=== PATIENT | female | born 1930 | race Caucasian/White ===

== ENCOUNTER 2016-05-25 07:47 | Inpatient (IN) | payer MEDICARE, OTHER ==
[2016-05-25 08:54] LABS: BASOPHILS % 0.2 (0.0-1.5); EOSINOPHILS % 0.1 % (0.0-6.8); MEAN CORPUSCULAR HEMOGLOBIN 31.5 pg (28.0-34.0); MONOCYTES # 0.4 # k/uL (0.0-0.9); MONOCYTES % 4.1 % (0.0-11.0); NEUTROPHILS # 9.3 # k/uL (1.4-7.7)
[2016-05-25] MEDS ORDERED: VANCOMYCIN HCL 1 GM in 0.9 % SODIUM CHLORIDE 500 ML IV ONE (09:00)
[2016-05-25 09:04] LABS: eGFR (African) > 60; eGFR (Non-African) > 60
[2016-05-25] MEDS ORDERED: methylPREDNISolone SOD SUCC 125 MG/2 ML VIAL ONE (09:17)
[2016-05-25] MEDS ORDERED: 0.9 % SODIUM CHLORIDE 50 ML IV ONE ×2 (09:17→13:47)
[2016-05-25] MEDS ORDERED: MEROPENEM 1,000 MG IV.SOLN. IV ONE (09:17)
--- NOTE | 2016-05-25 09:38 | ED Physician Documentation ---
Dyspnea - HISTORIAN Historian: patient - HPI Stated Complaint: dyspnea Chief Complaint: Dyspnea Additional Information: 85 yo F here from half[place]way for 3 days worsening SOB. She reportedly was diagnosed with influenza 1 week ago. She was doing fairly well but worsening over last 3 days. She does have Parkinsons with associated dementia so ROS difficult and mostly obtained from daughter, who does not live with her. She is unsure if she has had fevers the last 3 days. Daughter believes her to be at her normal mental baseline, says she is somewhat quiet and doesnt talk frequently. She has had a productive cough. Other history includes CHF, COPD. I spoke with daughter, patient does have DNR/DNI on file. Patient would be OK with noninvasive positive pressure ventilation if necessary. All other systems reviewed and negative except per HPI noting above limitations. Duration: continues in ED Initiating Event: upper respiratory illness Severity: moderate - ROS CONST: recent illness (influenza) EYES/ENT: denies: sore throat, nasal drainage, nasal congestion GI/: denies: abdominal pain, problems urinating MS/SKIN/LYMPH: none - PAST HX Lung Disease: COPD, pneumonia Cardiac Disease: CHF, other (HTN) Surgeries/Procedures: other (unknown) Allergies/Adverse Reactions: Allergies Allergy/AdvReac Type Severity Reaction Status Date / Time Penicillins Allergy Intermediate Rash Verified 06/14/13 08:41 Sulfa (Sulfonamide Allergy Intermediate Rash Verified 06/14/13 08:41 Antibiotics) [Sulfa(Sulfonamide Antibiotics)] Home Medications: Ambulatory Orders Medication Instructions Recorded Acetaminophen [Tylenol] 650 mg PO Q6 PRN 06/14/13 Aspirin [Michoacano] 81 mg PO QD 06/14/13 Ipratropium/Albuterol Sulfate 3 ml NEB TID 06/14/13 [Duoneb] Latanoprost [Xalatan] 1 drop EACHEYE HS 06/14/13 Magnesium Hydroxide [Milk of 30 ml PO DAILY PRN 06/14/13 Magnesia] Multivitamin [Tab-A-Lupe] 1 each PO QD 06/14/13 Carbidopa/Levodopa 25/100 [Sinemet] 1 each PO TID tablet 07/01/15 Valproic Acid (As Sodium Salt) 250 mg PO QID bottle 07/01/15 [Depakene] cefTRIAXone SODIUM [Rocephin] 1 gm IV QD vial 07/01/15 - SOCIAL HX Smoking History: quit greater than 1 year Alcohol Use: none Drug Use: none - FAMILY HX Family History: none - VITAL SIGNS Vital Signs: Vital Signs Temp Pulse Resp BP Pulse Ox 99.2 F 109 H 30 H 150/69 89 L 05/25/16 07:50 05/25/16 07:50 05/25/16 07:50 05/25/16 07:50 05/25/16 07:50 - REVIEWED ASSESSMENTS Nursing Assessment Reviewed: Yes Vitals Reviewed: Yes ED Results Lab/Radiology - Lab Results Lab Results: Lab Results 05/25/16 05/25/16 05/25/16 08:45 08:45 08:45 WBC RBC Hgb Hct MCV MCH MCHC RDW Plt Count Neut % (Auto) Lymph % (Auto) [place] % (Auto) Eos % (Auto) Baso % (Auto) Neut # Lymph # [place] # Eos # Baso # Reactive Lymphs % Reactive Lymphs # Sodium Potassium Chloride Carbon Dioxide BUN Creatinine Estimated Creat Clear Est GFR ( Amer) Est GFR (Non-Af Amer) Glucose Calcium Total Bilirubin AST ALT Alkaline Phosphatase Creatine Kinase CK-MB (CK-2) 0.6 ng/mL ng/mL (0.3-5.0) Troponin I < 0.03 ng/mL L ng/mL (0.03-0.06) NT-Pro-B Natriuret Pep 1930.0 pg/mL H pg/mL (15.0-450.0) Total Protein Albumin 05/25/16 05/25/16 08:45 08:45 WBC 11.00 K/ul K/ul (4.00-12.00) RBC 3.94 M/ul M/ul (3.90-5.20) Hgb 12.4 g/dL g/dL (12.0-16.0) Hct 38.5 % % (34.5-46.5) MCV 97.7 fl fl (80.0-100.0) MCH 31.5 pg pg (28.0-34.0) MCHC 32.2 g/dL g/dL (30.0-36.0) RDW 13.7 % % (11.3-14.3) Plt Count 189 K/mm3 K/mm3 (130-400) Neut % (Auto) 84.9 % H % (39.0-79.0) Lymph % (Auto) 9.5 % L % (16.0-50.0) [place] % (Auto) 4.1 % % (0.0-11.0) Eos % (Auto) 0.1 % % (0.0-6.8) Baso % (Auto) 0.2 (0.0-1.5) Neut # 9.3 # k/uL H # k/uL (1.4-7.7) Lymph # 1.0 # k/uL # k/uL (0.6-4.0) [place] # 0.4 # k/uL # k/uL (0.0-0.9) Eos # 0.0 # k/uL # k/uL (0.0-0.6) Baso # 0.0 # k/uL # k/uL (0.0-0.5) Reactive Lymphs % 1.2 % % (0.0-5.0) Reactive Lymphs # 0.1 # k/uL # k/uL (0.0-0.8) Sodium 142 mmol/L mmol/L (136-145) Potassium 4.6 mmol/L mmol/L (3.5-5.0) Chloride 108 mmol/L mmol/L (98-110) Carbon Dioxide 34 mmol/L H mmol/L (20-32) BUN 18 mg/dL mg/dL (10-26) Creatinine 0.9 mg/dL mg/dL (0.4-1.5) Estimated Creat Clear 71 Est GFR ( Amer) > 60 (60 - ) Est GFR (Non-Af Amer) > 60 (60 - ) Glucose 134 mg/dL H mg/dL (70-99) Calcium 9.4 mg/dL mg/dL (8.5-10.5) Total Bilirubin 0.4 mg/dL mg/dL (0.2-1.2) AST 18 U/L U/L (0-41) ALT 17 U/L U/L (0-45) Alkaline Phosphatase 72 U/L U/L (46-116) Creatine Kinase 56 U/L U/L (0-225) CK-MB (CK-2) Troponin I NT-Pro-B Natriuret Pep Total Protein 8.7 g/dL H g/dL (6.0-8.5) Albumin 4.1 g/dL g/dL (3.0-5.5) - Orders Orders: ED Orders Category Date Time Status CHEST 1 VIEW [RAD] Stat Exams 05/25/16 Ordered CHEST 1 VIEW [RAD] Stat Exams 05/25/16 08:38 Stop Req BLOOD CULTURE Stat Lab 05/25/16 08:45 Received CBC/PLATELET/DIFF Stat Lab 05/25/16 08:45 Completed CMP Stat Lab 05/25/16 08:45 Completed CREATINE KINASE MB Stat Lab 05/25/16 08:45 Completed CREATINE KINASE Stat Lab 05/25/16 08:45 Completed NT-proBNP Stat Lab 05/25/16 08:45 Completed TROPONIN I (cTnI) Stat Lab 05/25/16 08:45 Completed blood gas [ARTERIAL BLOOD GAS] Stat Lab 05/25/16 Uncollected 0.9 % Sodium Chloride [Sodium Chloride] 50 ml Med 05/25/16 09:17 Discontinued IV .STK-MED Meropenem Med 05/25/16 09:17 Discontinued 1,000 mg IV .STK-MED ONE Meropenem 1,000 mg Med 05/25/16 13:00 Ordered 0.9 % Sodium Chloride [Sodium Chloride] 50 ml IV Q8 Vancomycin HCl [Vancocin] 1 gm Med 05/25/16 09:00 Active 0.9 % Sodium Chloride [Normal Saline] 500 ml IV NOW methylPREDNISolone SOD SUCC [Solu-MEDROL] Med 05/25/16 09:17 Discontinued 125 mg .ROUTE .STK-MED ONE methylPREDNISolone SOD SUCC [Solu-MEDROL] 125 mg Med 05/25/16 09:10 Discontinued 0.9 % Sodium Chloride [Sodium Chloride] 100 ml IV NOW Oxygen Stat Oxygen 05/25/16 08:45 Ordered EKG WITH COMPARISON Stat Ther 05/25/16 08:39 Ordered ABG pH 7.47, CO2 42, PO2 83 on NRB, HCO3 30.6, SAO2 97% NRB. CXR LLL PNA. EKG NSR 99bpm, normal axis, normal intervals, no ST or T wave changes. No ectopy. Dyspnea Physical Exam - EXAM General Appearance: moderate distress (respiratory) EENT: ENT inspection normal, dry mucous membranes Respiratory: respiratory distress (moderate), accessory muscle use, decreased air movement (L base), rhonchi (L base) CVS: reg. rate & rhythm, no murmur, pulses equal Abdomen: non-tender, no organomegaly, no distention Skin: color nml, no rash Extremities: other (1+ b/l LE edema, non pitting) Neuro/Psych: other (patient opens her eyes, follow commands but doesnt talk much. Nods appropriately. ) Discharge Clincal Impression: Influenza, Hypoxia Pneumonia Qualifiers: Pneumonia type: due to unspecified organism Laterality: left Lung location: lower lobe of lung Qualified Code(s): J18.1 - Lobar pneumonia, unspecified organism Dyspnea Qualifiers: Dyspnea type: unspecified Qualified Code(s): R06.00 - Dyspnea, unspecified Referrals: Theodore Hinojosa MD [Primary Care Provider] - 2 Days Home Medications: Ambulatory Orders Acetaminophen [Tylenol] 650 mg PO Q6 PRN 06/14/13 Aspirin [Michoacano] 81 mg PO QD 06/14/13 Ipratropium/Albuterol Sulfate [Duoneb] 3 ml NEB TID 06/14/13 Latanoprost [Xalatan] 1 drop EACHEYE HS 06/14/13 Magnesium Hydroxide [Milk of Magnesia] 30 ml PO DAILY PRN 06/14/13 Multivitamin [Tab-A-Lupe] 1 each PO QD 06/14/13 Carbidopa/Levodopa 25/100 [Sinemet] 1 each PO TID tablet 07/01/15 Valproic Acid (As Sodium Salt) [Depakene] 250 mg PO QID bottle 07/01/15 cefTRIAXone SODIUM [Rocephin] 1 gm IV QD vial 07/01/15 Comments: Patient initially in moderate resp distress on NC 4L with O2 in upper 80's low 90's and increased work of breathing. Placed immediately on NRB cardiac monitors and care delayed due to code blue in another room. On re-eval the patient is much more comfortable with decreased work of breathing on NRB. CXR with LLL PNA, no significant fluid overload. Started on HCAP abx, merrem and vanc. BP has remained stable, no tachycardia. No fluids given due to CHF and stable BP. Blood gas without elevated CO2. Condition: Good Disposition: ADMITTED INPATIENT Decision to Admit: [id number] Decision Time: 09:30
[2016-05-25 09:42] LABS: ABG PH 7.47 (7.35-7.45)
[2016-05-25 09:43] LABS: ABG BASE EXCESS 6.3 (-2 - +2)
[2016-05-25] MEDS ORDERED: MEROPENEM 1,000 MG in 0.9 % SODIUM CHLORIDE 50 ML IV STA (09:43)
[2016-05-25] MEDS ORDERED: MEROPENEM 1,000 MG in 0.9 % SODIUM CHLORIDE 50 ML IV SCH ×2 (10:00→13:00)
[2016-05-25] MEDS ORDERED: IPRATROPIUM/ALBUTEROL SULFATE 3 ML AMPUL.NEB NEB PRN (10:29)
[2016-05-25] MEDS ORDERED: MAGNESIUM HYDROXIDE 400 MG/5 ML 30ML UDC PO PRN (10:29)
[2016-05-25] MEDS ORDERED: ACETAMINOPHEN 325 MG TABLET PO PRN (10:29)
[2016-05-25 11:49] VITALS: BMI 51.7
[2016-05-25] MEDS ORDERED: SALINE FLUSH 10 ML DISP.SYRIN IVF ONE ×2 (12:18→13:47)
[2016-05-25] MEDS: ENOXAPARIN SODIUM 30 MG/0.3 ML DISP.SYRIN SQ SCH ×2 (12:32→20:08)
--- NOTE | 2016-05-25 12:46 | History and Physical Report ---
History of Present Illnes - History of Present Illness Reason for Visit: left lower lobe pneumonia/hypoxia History of Present Illness: This is an 85 year old female patient at [place], who presented to the ER this morning with c/o cough/fever and decreased LOC. She was found to have a left lower lobe pneumonia on x ray and a minimally elevated WBC. Her troponin is negative. She is currently on )2 at 15L by NRB and her saturations are 98%. She is oxygen dependent at the prison also. It is of note that she was influenza A positive last week and had a course of oseltamavir. Despite this, however her clinical condition continued to worsen such that I was called for an order to send her to the ER this am. 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 denies: Tetanus, Pap Smear, Mammogram, Colonoscopy, DEXA Pneumonia Vaccine: Yes Resuscitation Status: Resusciation Status Resuscitation Status Do Not Resuscitate - Unable to Obtain History Unable to Obtain: Yes Review of Systems - Review of Systems Constitutional: Fever Eyes: negative: pain ENT: negative: Ear Pain Respiratory: Cough, Shortness of Breath Cardiovascular: Orthopnea Gastrointestinal: negative: Nausea, Vomiting Genitourinary: negative: Dysuria, Frequency Musculoskeletal: negative: Neck Pain Skin: negative: Rash Neurological: Weakness, Confusion - Medications/Allergies Allergies/Adverse Reactions: Allergies Allergy/AdvReac Type Severity Reaction Status Date / Time Penicillins Allergy Intermediate Rash Verified 06/14/13 08:41 Sulfa (Sulfonamide Allergy Intermediate Rash Verified 06/14/13 08:41 Antibiotics) [Sulfa(Sulfonamide Antibiotics)] Current Inpatient Medications: Current Inpatient Medications Acetaminophen (Tylenol) 650 mg PO Q6 PRN PRN Reason: pain or elevated temp Al Hydroxide/Mg Hydroxide (Milk Of Magnesia) 2,400 mg PO DAILY PRN PRN Reason: Constipation Albuterol/Ipratropium (Duoneb) 3 ml NEB TID VENESSA Albuterol/Ipratropium (Duoneb) 3 ml NEB QID PRN PRN Reason: shortness of breath Amlodipine Besylate (Norvasc) 5 mg PO DAILY [facility] Aspirin (Aspirin) 81 mg PO DAILY [facility] Carbidopa/Levodopa (Sinemet) 1 each PO TID [facility] Enoxaparin Sodium (Lovenox) 30 mg SQ Q12H VENESSA Stop: 05/31/16 22:01 Last Admin: 05/25/16 12:32 Dose: 30 mg Latanoprost (Xalatan) 1 drop OP HS [facility] Lisinopril (Prinivil) 20 mg PO DAILY [facility] Metoprolol Tartrate (Lopressor) 25 mg PO BID [facility] Miscellaneous (Atorvastatin Calcium [Lipitor]) 10 mg PO HS [facility] Multivitamins (Tab-A-Lupe) 1 each PO QD [facility] Tiotropium Anna (Spiriva) 1 inh IH DAILY [facility] Exam - Exam Vital Signs: Vital Signs (72 hours) 05/25/16 05/25/16 10:07 10:27 Temperature 99.5 F 99.5 F Pulse Rate [ 94 H 94 H Pulse ox] Respiratory 34 H 34 H Rate Blood Pressure 128/57 128/57 [Right Arm] O2 Sat by Pulse 97 97 Oximetry General: Obese HEENT: Atraumatic, PERRLA, EOMI, Mouth Mucous membr. moist/[place] Neck: No: Stridor Lungs: Wheezes, Prolonged Expiration (and tachypnea), Decreased Air Movement Cardiovascular: Regular rate, Normal S1, Normal S2 Murmur: No: Systolic Murmur Abdomen: Normal bowel sounds (without tympany), Soft Genitourinary: No: Right Inguinal Hernia, Left Inguinal Hernia Male Genitourinary: No: Other Female Genitourinary: No: Prolapse Integumentary: Normal, [place], Warm, Dry, Other (Skin is in remarkably good condition. No yeast, no decubiti) Extremities: No edema Neurological: Generalized Weakness Psych/Mental Status: No: Mental status NL - Laboratory Results Laboratory Results: CXR shows a left lower lobe pneumonia Assessment/Plan - Assessment/Plan (1) Left lower lobe pneumonia Status: Acute Current Visit: Yes Qualifiers: Pneumonia type: due to unspecified organism Qualified Code(s): J18.1 - Lobar pneumonia, unspecified organism Assessment: Will change to IV ceftriaxone and azithromycin (2) Dyspnea Status: Acute Current Visit: Yes Qualifiers: Dyspnea type: unspecified Qualified Code(s): R06.00 - Dyspnea, unspecified Assessment: Due to COPD and pneumonia Plan: nebulizer treatments/IV steroids (3) Hypoxia Status: Acute Current Visit: Yes Assessment: Currently on 15L by NRB Plan: Attempt to wean as possible (4) COPD (chronic obstructive pulmonary disease) Status: Chronic Current Visit: No Qualifiers: COPD type: emphysema Assessment: nebulizer treatments/steroids (5) Essential hypertension Status: Chronic Current Visit: No Assessment: Currently well controlled (6) Seizure disorder Status: Chronic Current Visit: No Assessment: No active seizure activity Plan: Continue current dose of valproic acid VTE Assessment - RISK FACTOR SCORE VTE RISK FACTOR SCORES: AGE OVER 60 YEARS, ACUTE RESPIRATORY FAILURE/SEVERE COPD - RISK VTE MODERATE RISK: SCORE OF 2 (RISK PROXIMAL DVT 2-4%) PROPHYAXIS NEEDED (On lovenox)
[2016-05-25] MEDS: MULTIVITAMIN 1 EACH TABLET PO SCH (12:50)
[2016-05-25] MEDS: VALPROIC ACID (AS SODIUM SALT) 250 MG/5 ML BOTTLE PO SCH ×3 (12:50→20:07)
[2016-05-25] MEDS: ASPIRIN 81 MG CHEW TAB PO SCH (12:50)
[2016-05-25] MEDS ORDERED: IPRATROPIUM/ALBUTEROL SULFATE 3 ML AMPUL.NEB NEB SCH (13:00)
[2016-05-25] MEDS: IPRATROPIUM/ALBUTEROL SULFATE 3 ML AMPUL.NEB NEB SCH ×2 (13:07→20:03)
[2016-05-25] MEDS ORDERED: 0.9 % SODIUM CHLORIDE 250 ML IV ONE (13:46)
[2016-05-25] MEDS ORDERED: cefTRIAXone SODIUM 1 GM VIAL ONE (13:47)
[2016-05-25] MEDS ORDERED: AZITHROMYCIN 500 MG VIAL IV ONE (13:47)
[2016-05-25] MEDS: methylPREDNISolone SOD SUCC 125 MG/2 ML VIAL IVP SCH ×2 (14:26→20:03)
--- NOTE | 2016-05-25 14:32 | Diagnostic Imaging Report ---
QUYNH NAVARRETE [facility] [address] [facility] [address] [address] Report Submission Date: May 25, 2016 8:53:27 AM PROGRAM ATTENDANT Patient Study Name: DOROTEO MIRELES Date: May 25, 2016 8:33:09 AM PROGRAM ATTENDANT Modality Type: CR Gender: F Description: CHEST : 30 Institution: [facility] Physician: QUYNH NAVARRETE Chest -one view CLINICAL HISTORY: Dyspnea. FINDINGS: Examination of the chest single portable AP view 05/2016 0833 hr with comparison to examination 06/25/2015 demonstrates minimal infiltrate or atelectasis in the left base. The right lung is clear. Cardiac silhouette is enlarged and the aorta is atherosclerotic. Monitor leads superimpose the chest. IMPRESSION: Left basilar infiltrate or atelectasis. Aortic atherosclerosis and left ventricular prominence. Electronically signed on May 25, 2016 8:53:27 AM PROGRAM ATTENDANT by: Fortino STONE
[2016-05-25] MEDS: cefTRIAXone SODIUM 1 GM in 0.9 % SODIUM CHLORIDE 50 ML IV SCH (14:41)
[2016-05-25] MEDS: AZITHROMYCIN 250 MG in 0.9 % SODIUM CHLORIDE 250 ML IV SCH (15:15)
[2016-05-25] MEDS: METOPROLOL TARTRATE 50 MG TABLET PO SCH (20:07)
[2016-05-25] MEDS: LATANOPROST 0.005% OPTH DROP OP SCH (20:08)
[2016-05-25] MEDS: SIMVASTATIN 20 MG TABLET PO SCH (20:08)
[2016-05-25] MEDS ORDERED: LIPITOR 10 MG PO SCH (21:00)
[2016-05-26] MEDS: IPRATROPIUM/ALBUTEROL SULFATE 3 ML AMPUL.NEB NEB SCH ×4 (03:45→20:08)
[2016-05-26] MEDS: methylPREDNISolone SOD SUCC 125 MG/2 ML VIAL IVP SCH ×3 (05:41→20:12)
[2016-05-26] MEDS: LISINOPRIL 20 MG TABLET PO SCH (08:31)
[2016-05-26] MEDS: ASPIRIN 81 MG CHEW TAB PO SCH (08:31)
[2016-05-26] MEDS: METOPROLOL TARTRATE 50 MG TABLET PO SCH ×2 (08:31→20:15)
[2016-05-26] MEDS: TIOTROPIUM BROMIDE INHALER IH SCH (08:31)
[2016-05-26] MEDS: amLODIPine BESYLATE 5 MG TABLET PO SCH (08:31)
[2016-05-26] MEDS: VALPROIC ACID (AS SODIUM SALT) 250 MG/5 ML BOTTLE PO SCH ×4 (08:31→20:16)
[2016-05-26] MEDS: MULTIVITAMIN 1 EACH TABLET PO SCH (08:31)
[2016-05-26] MEDS: ENOXAPARIN SODIUM 30 MG/0.3 ML DISP.SYRIN SQ SCH ×2 (10:22→21:26)
[2016-05-26] MEDS ORDERED: SALINE FLUSH 10 ML DISP.SYRIN IVF ONE (10:32)
[2016-05-26] MEDS: cefTRIAXone SODIUM 1 GM in 0.9 % SODIUM CHLORIDE 50 ML IV SCH (12:32)
[2016-05-26] MEDS: AZITHROMYCIN 250 MG in 0.9 % SODIUM CHLORIDE 250 ML IV SCH (13:05)
--- NOTE | 2016-05-26 14:55 | Inpatient Progress Note ---
Subjective - Required Recertification Statement I anticipate X number of days because-include discharge plan: 2 - Review of Systems Events since last encounter: Patient seems to be improving, is still not very verbal. Vital signs are improved. Pulmonary: Dyspnea, Cough Cardiovascular: Denies: Chest Pain Gastrointestinal: Denies: Nausea, Vomiting Objective - Exam Vitals and I&O: Vital Signs Temp 98.5 F 05/26/16 13:47 Pulse 86 05/26/16 13:47 Resp 20 05/26/16 13:47 BP 112/56 05/26/16 13:47 Pulse Ox 94 05/26/16 14:00 Intake & Output 05/25/16 05/26/16 05/26/16 23:59 11:59 23:59 Intake Total 500 240 Output Total 0 Balance 500 240 Weight 68.039 kg Intake: IV 500 Left Forearm 500 Oral 0 240 Output: Urine 0 Other: Voiding Method Diaper Diaper # Voids 2 1 # Bowel Movements 1 General: Cooperative (opens eyes with verbal stimuli, responds some to commands) . No: Alert, Oriented to Person, Oriented to Place, Oriented to Time HEENT: No: Atraumatic, PERRLA Neck: Supple. No: No JVD, No thyromegaly Lungs: Normal air movement, Rhonchi (few scattered bialteral). No: Respiratory Distress, Wheezes Cardiovascular: Regular rate, Normal S1, Normal S2. No: No murmurs, Gallops Abdomen: Normal bowel sounds, Soft, No tenderness, No hepatospenomegaly Extremities: No clubbing, No cyanosis, No edema, Normal pulses Skin: Normal, [place], Warm, Dry Psych/Mental Status: No: Mental status NL (lethargic) - Results Results: Laboratory Results WBC 11.00 K/ul (4.00-12.00) 05/25/16 08:45 RBC 3.94 M/ul (3.90-5.20) 05/25/16 08:45 Hgb 12.4 g/dL (12.0-16.0) 05/25/16 08:45 Hct 38.5 % (34.5-46.5) 05/25/16 08:45 MCV 97.7 fl (80.0-100.0) 05/25/16 08:45 MCH 31.5 pg (28.0-34.0) 05/25/16 08:45 MCHC 32.2 g/dL (30.0-36.0) 05/25/16 08:45 RDW 13.7 % (11.3-14.3) 05/25/16 08:45 Plt Count 189 K/mm3 (130-400) 05/25/16 08:45 Neut % (Auto) 84.9 % (39.0-79.0) H 05/25/16 08:45 Lymph % (Auto) 9.5 % (16.0-50.0) L 05/25/16 08:45 [place] % (Auto) 4.1 % (0.0-11.0) 05/25/16 08:45 Eos % (Auto) 0.1 % (0.0-6.8) 05/25/16 08:45 Baso % (Auto) 0.2 (0.0-1.5) 05/25/16 08:45 Neut # 9.3 # k/uL (1.4-7.7) H 05/25/16 08:45 Lymph # 1.0 # k/uL (0.6-4.0) 05/25/16 08:45 [place] # 0.4 # k/uL (0.0-0.9) 05/25/16 08:45 Eos # 0.0 # k/uL (0.0-0.6) 05/25/16 08:45 Baso # 0.0 # k/uL (0.0-0.5) 05/25/16 08:45 Reactive Lymphs % 1.2 % (0.0-5.0) 05/25/16 08:45 Reactive Lymphs # 0.1 # k/uL (0.0-0.8) 05/25/16 08:45 pH 7.47 (7.35-7.45) H 05/25/16 09:42 pCO2 42 mmhg (35-45) 05/25/16 09:42 pO2 83 mmhg (80-100) 05/25/16 09:42 HCO3 30.6 Meq/L (21-26) H 05/25/16 09:42 ABG O2 Sat Calc/[place] 97 % (93-100) 05/25/16 09:42 ABG Base Excess 6.3 (-2 - +2) H 05/25/16 09:42 Sodium 142 mmol/L (136-145) 05/25/16 08:45 Potassium 4.6 mmol/L (3.5-5.0) 05/25/16 08:45 Chloride 108 mmol/L (98-110) 05/25/16 08:45 Carbon Dioxide 34 mmol/L (20-32) H 05/25/16 08:45 BUN 18 mg/dL (10-26) 05/25/16 08:45 Creatinine 0.9 mg/dL (0.4-1.5) 05/25/16 08:45 Estimated Creat Clear 71 05/25/16 08:45 Est GFR ( Amer) > 60 (60-) 05/25/16 08:45 Est GFR (Non-Af Amer) > 60 (60-) 05/25/16 08:45 Glucose 134 mg/dL (70-99) H 05/25/16 08:45 Calcium 9.4 mg/dL (8.5-10.5) 05/25/16 08:45 Total Bilirubin 0.4 mg/dL (0.2-1.2) 05/25/16 08:45 AST 18 U/L (0-41) 05/25/16 08:45 ALT 17 U/L (0-45) 05/25/16 08:45 Alkaline Phosphatase 72 U/L (46-116) 05/25/16 08:45 Creatine Kinase 56 U/L (0-225) 05/25/16 08:45 CK-MB (CK-2) 0.6 ng/mL (0.3-5.0) 05/25/16 08:45 Troponin I < 0.03 ng/mL (0.03-0.06) L 05/25/16 08:45 NT-Pro-B Natriuret Pep 1930.0 pg/mL (15.0-450.0) H 05/25/16 08:45 Total Protein 8.7 g/dL (6.0-8.5) H 05/25/16 08:45 Albumin 4.1 g/dL (3.0-5.5) 05/25/16 08:45 Assessment/Plan - Assessment/Plan (1) Dyspnea Status: Acute Current Visit: Yes Qualifiers: Dyspnea type: shortness of breath Qualified Code(s): R06.02 - Shortness of breath (2) Pneumonia Status: Acute Current Visit: Yes Qualifiers: Pneumonia type: due to unspecified organism Laterality: left Lung location: lower lobe of lung Qualified Code(s): J18.1 - Lobar pneumonia, unspecified organism Assessment: Will continue with present treatment.
[2016-05-26] MEDS: LATANOPROST 0.005% OPTH DROP OP SCH (20:13)
[2016-05-26] MEDS: SIMVASTATIN 20 MG TABLET PO SCH (20:16)
[2016-05-27] MEDS: IPRATROPIUM/ALBUTEROL SULFATE 3 ML AMPUL.NEB NEB SCH ×4 (01:15→18:14)
[2016-05-27] MEDS ORDERED: SALINE FLUSH 10 ML DISP.SYRIN IVF ONE ×4 (04:45→20:19)
[2016-05-27] MEDS: methylPREDNISolone SOD SUCC 125 MG/2 ML VIAL IVP SCH ×3 (05:20→20:55)
[2016-05-27] MEDS: amLODIPine BESYLATE 5 MG TABLET PO SCH (08:41)
[2016-05-27] MEDS: METOPROLOL TARTRATE 50 MG TABLET PO SCH ×2 (08:41→20:25)
[2016-05-27] MEDS: ASPIRIN 81 MG CHEW TAB PO SCH (08:41)
[2016-05-27] MEDS: LISINOPRIL 20 MG TABLET PO SCH (08:41)
[2016-05-27] MEDS: VALPROIC ACID (AS SODIUM SALT) 250 MG/5 ML BOTTLE PO SCH ×4 (08:47→20:25)
[2016-05-27] MEDS: TIOTROPIUM BROMIDE INHALER IH SCH (08:48)
[2016-05-27] MEDS: ENOXAPARIN SODIUM 30 MG/0.3 ML DISP.SYRIN SQ SCH ×2 (10:09→20:23)
[2016-05-27] MEDS: MULTIVITAMIN 1 EACH TABLET PO SCH (10:09)
--- NOTE | 2016-05-27 10:43 | Inpatient Progress Note ---
Subjective - Required Recertification Statement I anticipate X number of days because-include discharge plan: 1 - Review of Systems Pulmonary: Cough. Denies: Dyspnea Cardiovascular: Denies: Chest Pain, Palpitations Gastrointestinal: Denies: Nausea, Vomiting Objective - Exam Vitals and I&O: Vital Signs Temp 98 F 05/27/16 10:00 Pulse 72 05/27/16 10:00 Resp 20 05/27/16 10:00 BP 123/69 05/27/16 10:00 Pulse Ox 93 05/27/16 10:00 Intake & Output 05/26/16 05/26/16 05/27/16 11:59 23:59 11:59 Intake Total 360 360 Balance 360 360 Intake: Oral 360 360 Other: Voiding Method Diaper Diaper # Voids 1 0 2 # Bowel Movements 1 General: Alert, Oriented to Person. No: Oriented to Place, Oriented to Time, Cooperative Lungs: Normal air movement, Wheezes (mild left basee), Rales (mild left base). No: Respiratory Distress, Rhonchi Cardiovascular: Regular rate, Normal S1, Normal S2 Abdomen: Normal bowel sounds, Soft Skin: Normal, [place], Warm Psych/Mental Status: Mental status NL, Mood NL, Appropriate Affect - Results Results: Laboratory Results WBC 11.00 K/ul (4.00-12.00) 05/25/16 08:45 RBC 3.94 M/ul (3.90-5.20) 05/25/16 08:45 Hgb 12.4 g/dL (12.0-16.0) 05/25/16 08:45 Hct 38.5 % (34.5-46.5) 05/25/16 08:45 MCV 97.7 fl (80.0-100.0) 05/25/16 08:45 MCH 31.5 pg (28.0-34.0) 05/25/16 08:45 MCHC 32.2 g/dL (30.0-36.0) 05/25/16 08:45 RDW 13.7 % (11.3-14.3) 05/25/16 08:45 Plt Count 189 K/mm3 (130-400) 05/25/16 08:45 Neut % (Auto) 84.9 % (39.0-79.0) H 05/25/16 08:45 Lymph % (Auto) 9.5 % (16.0-50.0) L 05/25/16 08:45 [place] % (Auto) 4.1 % (0.0-11.0) 05/25/16 08:45 Eos % (Auto) 0.1 % (0.0-6.8) 05/25/16 08:45 Baso % (Auto) 0.2 (0.0-1.5) 05/25/16 08:45 Neut # 9.3 # k/uL (1.4-7.7) H 05/25/16 08:45 Lymph # 1.0 # k/uL (0.6-4.0) 05/25/16 08:45 [place] # 0.4 # k/uL (0.0-0.9) 05/25/16 08:45 Eos # 0.0 # k/uL (0.0-0.6) 05/25/16 08:45 Baso # 0.0 # k/uL (0.0-0.5) 05/25/16 08:45 Reactive Lymphs % 1.2 % (0.0-5.0) 05/25/16 08:45 Reactive Lymphs # 0.1 # k/uL (0.0-0.8) 05/25/16 08:45 pH 7.47 (7.35-7.45) H 05/25/16 09:42 pCO2 42 mmhg (35-45) 05/25/16 09:42 pO2 83 mmhg (80-100) 05/25/16 09:42 HCO3 30.6 Meq/L (21-26) H 05/25/16 09:42 ABG O2 Sat Calc/Preston 97 % (93-100) 05/25/16 09:42 ABG Base Excess 6.3 (-2 - +2) H 05/25/16 09:42 Sodium 142 mmol/L (136-145) 05/25/16 08:45 Potassium 4.6 mmol/L (3.5-5.0) 05/25/16 08:45 Chloride 108 mmol/L (98-110) 05/25/16 08:45 Carbon Dioxide 34 mmol/L (20-32) H 05/25/16 08:45 BUN 18 mg/dL (10-26) 05/25/16 08:45 Creatinine 0.9 mg/dL (0.4-1.5) 05/25/16 08:45 Estimated Creat Clear 71 05/25/16 08:45 Est GFR ( Amer) > 60 (60-) 05/25/16 08:45 Est GFR (Non-Af Amer) > 60 (60-) 05/25/16 08:45 Glucose 134 mg/dL (70-99) H 05/25/16 08:45 Calcium 9.4 mg/dL (8.5-10.5) 05/25/16 08:45 Total Bilirubin 0.4 mg/dL (0.2-1.2) 05/25/16 08:45 AST 18 U/L (0-41) 05/25/16 08:45 ALT 17 U/L (0-45) 05/25/16 08:45 Alkaline Phosphatase 72 U/L (46-116) 05/25/16 08:45 Creatine Kinase 56 U/L (0-225) 05/25/16 08:45 CK-MB (CK-2) 0.6 ng/mL (0.3-5.0) 05/25/16 08:45 Troponin I < 0.03 ng/mL (0.03-0.06) L 05/25/16 08:45 NT-Pro-B Natriuret Pep 1930.0 pg/mL (15.0-450.0) H 05/25/16 08:45 Total Protein 8.7 g/dL (6.0-8.5) H 05/25/16 08:45 Albumin 4.1 g/dL (3.0-5.5) 05/25/16 08:45 Assessment/Plan - Assessment/Plan (1) Dyspnea Status: Acute Current Visit: Yes Qualifiers: Dyspnea type: shortness of breath Qualified Code(s): R06.02 - Shortness of breath Assessment: improving (2) Pneumonia Status: Acute Current Visit: Yes Qualifiers: Pneumonia type: due to unspecified organism Laterality: left Lung location: lower lobe of lung Qualified Code(s): J18.1 - Lobar pneumonia, unspecified organism Assessment: appears to be improving, will get repeat chest x-ray
[2016-05-27] MEDS: cefTRIAXone SODIUM 1 GM in 0.9 % SODIUM CHLORIDE 50 ML IV SCH (13:01)
[2016-05-27] MEDS: AZITHROMYCIN 250 MG in 0.9 % SODIUM CHLORIDE 250 ML IV SCH (14:55)
[2016-05-27] MEDS: LATANOPROST 0.005% OPTH DROP OP SCH (20:26)
[2016-05-27] MEDS: SIMVASTATIN 20 MG TABLET PO SCH (20:26)
[2016-05-28] MEDS: IPRATROPIUM/ALBUTEROL SULFATE 3 ML AMPUL.NEB NEB SCH ×4 (01:36→18:43)
[2016-05-28] MEDS: methylPREDNISolone SOD SUCC 125 MG/2 ML VIAL IVP SCH ×3 (06:07→21:23)
[2016-05-28 06:50] LABS: BASOPHILS % 0.1 (0.0-1.5); EOSINOPHILS % 0.4 % (0.0-6.8); LYMPHOCYTES # 0.8 # k/uL (0.6-4.0); MEAN CORPUSCULAR HEMOGLOBIN 31.2 pg (28.0-34.0); MONOCYTES # 0.1 # k/uL (0.0-0.9); MONOCYTES % 2.3 % (0.0-11.0); NEUTROPHILS # 4.5 # k/uL (1.4-7.7)
[2016-05-28] MEDS: ENOXAPARIN SODIUM 30 MG/0.3 ML DISP.SYRIN SQ SCH ×2 (09:22→19:46)
[2016-05-28] MEDS: MULTIVITAMIN 1 EACH TABLET PO SCH (09:22)
[2016-05-28] MEDS: amLODIPine BESYLATE 5 MG TABLET PO SCH (09:22)
[2016-05-28] MEDS: ASPIRIN 81 MG CHEW TAB PO SCH (09:23)
[2016-05-28] MEDS: TIOTROPIUM BROMIDE INHALER IH SCH (09:23)
[2016-05-28] MEDS: METOPROLOL TARTRATE 50 MG TABLET PO SCH ×2 (09:23→19:47)
[2016-05-28] MEDS: LISINOPRIL 20 MG TABLET PO SCH (09:23)
[2016-05-28] MEDS: VALPROIC ACID (AS SODIUM SALT) 250 MG/5 ML BOTTLE PO SCH ×4 (09:24→19:46)
[2016-05-28 09:32] LABS: eGFR (African) > 60; eGFR (Non-African) > 60
[2016-05-28] MEDS: AZITHROMYCIN 250 MG in 0.9 % SODIUM CHLORIDE 250 ML IV SCH (13:00)
[2016-05-28] MEDS ORDERED: SALINE FLUSH 10 ML DISP.SYRIN IVF ONE ×3 (13:04→14:43)
[2016-05-28] MEDS: cefTRIAXone SODIUM 1 GM in 0.9 % SODIUM CHLORIDE 50 ML IV SCH (13:08)
--- NOTE | 2016-05-28 16:00 | Diagnostic Imaging Report ---
[facility] [address] [facility].[address] [id number] Report Submission Date: May 28, 2016 7:05:45 AM [employer] Patient Study Name: DOROTEO MIRELES Date: May 28, 2016 6:44:40 AM [employer] Modality Type: CR Gender: F Description: CHEST : 30 Institution: [facility] Physician: [place] Chest - one-view Clinical history: Follow-up pneumonia. Findings: Examination of the chest in single portable AP view 05/28/2016 0644 hours with comparison to examination of 05/25/2016 demonstrates lungs to be free of coalescent infiltrate. There are small calcified hilar lymph nodes. The aorta is atherosclerotic. Monitor leads superimpose the chest. Impression: 1. Aortic atherosclerosis. 2. No active disease. Electronically signed on May 28, 2016 7:05:45 AM [employer]CH[employer] by: Fortino STONE
[2016-05-28] MEDS: LATANOPROST 0.005% OPTH DROP OP SCH (19:48)
[2016-05-28] MEDS: SIMVASTATIN 20 MG TABLET PO SCH (19:48)
[2016-05-29] MEDS: IPRATROPIUM/ALBUTEROL SULFATE 3 ML AMPUL.NEB NEB SCH ×2 (01:20→06:34)
[2016-05-29] MEDS ORDERED: SALINE FLUSH 10 ML DISP.SYRIN IVF ONE ×2 (04:40→09:01)
[2016-05-29] MEDS: methylPREDNISolone SOD SUCC 125 MG/2 ML VIAL IVP SCH (06:34)
[2016-05-29] MEDS: METOPROLOL TARTRATE 50 MG TABLET PO SCH (09:22)
[2016-05-29] MEDS: amLODIPine BESYLATE 5 MG TABLET PO SCH (09:22)
[2016-05-29] MEDS: ENOXAPARIN SODIUM 30 MG/0.3 ML DISP.SYRIN SQ SCH (09:22)
[2016-05-29] MEDS: TIOTROPIUM BROMIDE INHALER IH SCH (09:22)
[2016-05-29] MEDS: VALPROIC ACID (AS SODIUM SALT) 250 MG/5 ML BOTTLE PO SCH (09:23)
[2016-05-29] MEDS: ASPIRIN 81 MG CHEW TAB PO SCH (09:23)
[2016-05-29] MEDS: LISINOPRIL 20 MG TABLET PO SCH (09:23)
[2016-05-29] MEDS: MULTIVITAMIN 1 EACH TABLET PO SCH (09:23)
--- NOTE | 2016-05-29 09:27 | Discharge Summary ---
Discharge Summary - Discharge Sumary History of Present Illness: 85 yo F here from care home for 3 days worsening SOB. She reportedly was diagnosed with influenza 1 week prior to admission. She was doing fairly well but worsening over 3 days prior to admission. She does have Parkinsons with associated dementia so ROS difficult and mostly obtained from daughter, who does not live with her. She is unsure if she has had fevers the last 3 days. Daughter believes her to be at her normal mental baseline, says she is somewhat quiet and doesnt talk frequently. She has had a productive cough. Other history includes CHF, COPD. I spoke with daughter, patient does have DNR/DNI on file. Patient would be OK with noninvasive positive pressure ventilation if necessary. Condition at Discharge: Stable Home Medications: Ambulatory Orders Medication Instructions Recorded Acetaminophen [Tylenol] 650 mg PO Q6 PRN 06/14/13 Aspirin [[place]] 81 mg PO QD 06/14/13 Ipratropium/Albuterol Sulfate 3 ml NEB TID 06/14/13 [Duoneb] Latanoprost [Xalatan] 1 drop EACHEYE HS 06/14/13 Magnesium Hydroxide [Milk of 30 ml PO DAILY PRN 06/14/13 Magnesia] Multivitamin [Tab-A-Lupe] 1 each PO QD 06/14/13 Carbidopa/Levodopa 25/100 [Sinemet] 1 each PO TID tablet 07/01/15 Valproic Acid (As Sodium Salt) 250 mg PO QID bottle 07/01/15 [Depakene] Azithromycin [Zithromax] 250 mg PO DAILY #3 tablet 05/29/16 Cefadroxil Hydrate [Duricef] 500 mg PO BID #14 capsule 05/29/16 Prednisone 10 mg PO DIRECTED #36 tablet 05/29/16 Consultations this Visit: None Procedures this Visit: None Allergies/Adverse Reactions: Allergies Allergy/AdvReac Type Severity Reaction Status Date / Time Penicillins Allergy Intermediate Rash Verified 06/14/13 08:41 Sulfa (Sulfonamide Allergy Intermediate Rash Verified 06/14/13 08:41 Antibiotics) [Sulfa(Sulfonamide Antibiotics)] Patient Problems: Current Active Problems Problem Status Onset Dyspnea Acute Hypoxia Acute Influenza Acute Left lower lobe pneumonia Acute Pneumonia Acute Discharge Summary: Patient did have blood cultures drawn on admission. At this time. They remained no growth. Patient was started on Rocephin and azithromycin IV for antibiotic therapy. Patient was started on Solu-Medrol IV. Patient was started on high flow nebulization treatments. Patient's oxygen was increased to maintain SaO2 greater than 90%. Over the course of the first 48 hours we were able to bring patient's oxygen down to 4 L. Patient remained afebrile with stable vital signs. Patient did have a repeat chest x-ray which did show improvement in the left lower lobe pneumonia. At the time of discharge patient was down to her baseline of 3 L of oxygen per nasal cannula. Patient was afebrile with stable vital signs. She could be further treated as an outpatient. Patient was transferred back to [facility]. Patient was transferred in stable condition. - Final Diagnosis (1) Dyspnea Problems: imporved (2) Pneumonia Problems: improved, I will continue with antibiotic therapy and high flow nebulization treatments. Right or Left: Left (3) Dementia Problems: stable (4) Parkinson disease Problems: Patient will be continued on present medication and treatment.
[2016-05-29 10:25] VITALS: BP 138/75
== END 2016-05-29 11:20 | DRG 195 ==
LOC: ED 07:47 → SOUTH 10:03 → UNDOADMIN 10:03
PROVIDERS: ADMIT Family Medicine; ATTEND Family Medicine
DX: J18.9 Pneumonia, unspecified organism (principal)
CPT/HCPCS: 36415; 36600; 71010; 80048; 80053; 82550; 82553; 82803; 83880; 84484; 85025; 87040; 93005; 94640; 94760; J0456; J0696; J1650; J2185; J2930; J3370; J7050; J7060; 99223; 99233; 99238; 99284

== ENCOUNTER 2016-09-23 08:34 | Outpatient (CLI) | payer MEDICARE, OTHER ==
--- NOTE | 2016-09-23 15:46 | Diagnostic Imaging Report ---
JESSICA DUNNE [facility] [id number] [facility] [address] [place], [place]. [address] Report Submission Date: Sep 23, 2016 1:22:56 PM CDT Patient Study Name: DOROTEO MIRELES Date: Sep 23, 2016 8:57:30 AM CDT Modality Type: CT\SR Gender: F Description: CT C-SPINE W/O CONTRAS : 30 Institution: [facility] Physician: JESSICA DUNNE Examination: CT cervical spine History: Neck discomfort Comparison exams: None provided Technique: CT cervical spine axial imaging with sagittal and coronal reconstruction Findings: Sagittal reconstruction demonstrates normal height of the cervical vertebral bodies. Reversal of the normal curvature. No anterior compression deformity. Disc space narrowing and anterior and posterior osteophyte formation from C3/C4 through C7/T1. Coronal reconstruction does not demonstrate locked or perched facets. No atlantoaxial abnormality. Head tilt to the right narrowing the C1/odontoid space. Axial imaging obtained from the skull base through T1 Lamina and pedicles are intact. No ossific density within the central canal. No prevertebral soft tissue abnormality. Extensive of multilevel facet degenerative changes. Impression: Multilevel degenerative changes as described. No evidence for fracture. If patient has experiencing a neurologic symptoms, recommend obtaining MRI. Electronically signed on Sep 23, 2016 1:22:56 PM CDT by: Dimas STONE
== END 2016-09-23 09:12 ==
LOC: RAD 08:34
PROVIDERS: ATTEND Psychiatry & Neurology Neurology
DX: M54.2 Cervicalgia (principal)
CPT/HCPCS: 72125